=== PATIENT | male | born 1975 | race Caucasian/White ===

== ENCOUNTER 2017-10-14 23:40 | Emergency (ER) | payer MEDICAID, OTHER ==
[~2017-10-14] VITALS: Ht 190.5 cm; Wt 89.8 kg
[2017-10-14] MEDS ORDERED: ONDANSETRON HCL/PF 4 MG/2 ML VIAL ONE (23:59)
[2017-10-14] MEDS ORDERED: HYDROMORPHONE INJ 2 MG/ML DISP.SYRIN ONE (23:59)
[2017-10-15] MEDS ORDERED: IV NS 0.9% 1,000 ML BAG IV ONE
[2017-10-15] MEDS ORDERED: HYDROMORPHONE INJ 2 MG/ML DISP.SYRIN IV ONE
[2017-10-15] MEDS ORDERED: ONDANSETRON HCL/PF 4 MG/2 ML VIAL IVP ONE
--- NOTE | 2017-10-15 | NUR ---
PT A/OX4 BREATHING EFFORTLESSLY ON ROOM AIR, PT STATES HE IS HVAING ALOT OF RIB AND BACK PAIN EVERY TIMES HE COUGHS, PT IS THRASHING AROUND IN BED AND IS NOT ABLE TO SIT STILL, IV PLACED, PT ON MONITOR, PT FRIEND AT BEDSIDE, MD MADE AWARE WILL CONTINUE TO MONITOR.
[2017-10-15 00:27] LABS: BASOPHILS % (AUTO) 0.6 % (0.0-2.0); EOSINOPHILS # (AUTO) 0.2 /CMM (0.0-0.7); EOSINOPHILS % (AUTO) 2.3 % (0.0-6.0); HEMATOCRIT 44 % (39-51); HEMOGLOBIN 14.8 g/dL (13.5-17.5); LYMPHOCYTES % (AUTO) 26.2 % (20.0-44.0); MEAN CORPUSCULAR HEMOGLOBIN 32 PG (26.0-33.0); MEAN CORPUSCULAR HGB CONC 34 g/dl (31.0-36.0); MEAN CORPUSCULAR VOLUME 95 fL (80-96); MONOCYTES # (AUTO) 0.9 /CMM (0.1-1.30); MONOCYTES % (AUTO) 12.4 % (2.0-12.0); NEUTROPHILS # (AUTO) 4.5 /CMM (1.8-8.9); NEUTROPHILS % (AUTO) 58.5 % (43.0-81.0); PLATELET COUNT (AUTO) 251 /CMM (150-450); RDW COEFFICIENT OF VARIATION 13.5 (11.5-15.0); RED BLOOD CELL COUNT(AUTO) 4.64 MIL/uL (4.5-6.0); WHITE BLOOD COUNT (AUTO) 7.6 K/uL (4.3-11.0)
[2017-10-15 00:34] LABS: CALCIUM, SERUM 8.6 mg/dL (8.5-10.1); CREATININE 1.1 mg/dL (0.6-1.3); POTASSIUM 4.3 mmol/L (3.5-5.1)
[2017-10-15 00:50] LABS: INR 0.92 (0.87-1.13); PROTHROMBIN TIME 9.6 SECS (9.5-12.7)
--- NOTE | 2017-10-15 01:41 | NUR ---
Patient discharged to home in stable condition. Written and verbal after care instructions given. Patient verbalizes understanding of instruction.IV removed. Catheter intact and site benign. Pressure and 4x4 applied to site. No bleeding noted. PT FAMILY STATES SHE IS DRIVING PT HOME
[2017-10-15 01:42] VITALS: BP 130/72
== END 2017-10-15 01:43 | disposition home or self-care (01) ==
LOC: ER 23:42
DX: R07.89 Other chest pain (principal); J06.9 Acute upper respiratory infection, unspecified
CPT/HCPCS: 36415; 71010; 80048; 85025; 85378; 85730; 93005; 96361; 96374; 96375; 99285; A4606; J1170; J2405; J7030; Z7610

== ENCOUNTER 2020-02-18 01:26 | Emergency (ER) | payer MEDICAID, OTHER ==
[~2020-02-18] VITALS: Ht 182.9 cm; Wt 83.9 kg
[2020-02-18 01:26] VITALS: BP 137/75
[2020-02-18] MEDS ORDERED: oxyCODONE/APAP (5/325 MG) 1 UDTAB TABLET PO ONE (02:00)
--- NOTE | 2020-02-18 02:01 | NUR ---
SUPPLY CHAIN TECH AT BEDSIDE FOR XRAY.
[2020-02-18] MEDS ORDERED: oxyCODONE/APAP (5/325 MG) 1 UDTAB TABLET ONE (02:02)
--- NOTE | 2020-02-18 02:46 | NUR ---
Patient discharged to home in stable condition. Written and verbal after care instructions given. Patient verbalizes understanding of instruction.
== END 2020-02-18 02:46 | disposition home or self-care (01) ==
LOC: ER 01:26
DX: S52.124A Nondisplaced fracture of head of right radius, initial encounter for closed fracture (principal); F17.200 Nicotine dependence, unspecified, uncomplicated; V00.131A Fall from skateboard, initial encounter; Y93.51 Activity, roller skating (inline) and skateboarding; Y92.89 Other specified places as the place of occurrence of the external cause; Y99.8 Other external cause status
CPT/HCPCS: 73080-TC

== ENCOUNTER 2024-07-19 21:26 | Emergency (ER) | payer OTHER ==
[~2024-07-19] VITALS: Ht 177.8 cm; Wt 86.2 kg
[2024-07-19 21:37] VITALS: BP 135/79; TEMP 98.5; O2SAT 99
--- NOTE | 2024-07-19 21:45 | NUR ---
PAIGE [employer] OTB WITH COMPLAINTS OF WITHDRAWLS FROM OPIATES.
--- NOTE | 2024-07-19 22:32 | NUR ---
Patient discharged WITH [employer] in stable condition FOR ENCARCERATION
[2024-07-19] MEDS: ONDANSETRON 4 MG TAB.RAPDIS SL ONE (22:35)
== END 2024-07-19 22:33 ==
LOC: ER 21:27
DX: F11.10 Opioid abuse, uncomplicated (principal)